=== PATIENT | male | born 1975 | race African-American/Black ===

== ENCOUNTER 2016-12-04 00:11 | Emergency (ER) | payer OTHER ==
[~2016-12-04] VITALS: Ht 167.6 cm; Wt 68.0 kg
[2016-12-04 00:19] VITALS: BP 131/104; PULSE 78; RESP 20; TEMP 98.5; O2SAT 95
[2016-12-04] MEDS ORDERED: ACETAMINOPHEN/HYDROcodone 325 MG/5 MG TAB PO ONE (00:30)
[2016-12-04] MEDS ORDERED: LIDOCAINE HCL 1% 50 ML VIAL INFIL ONE (00:30)
[2016-12-04] MEDS ORDERED: AMOXICILLIN/CLAVULANATE K 875 MG TAB PO ONE (00:30)
[2016-12-04] MEDS ORDERED: TETANUS/DIPHTHERIA TOXOID ADULT 0.5 ML VIAL IM ONE (00:45)
--- NOTE | 2016-12-04 01:16 | RADRPT ---
EXAM DATE/TIME: 12/04/2016 00:46 [place] COMPARISON: No previous studies available for comparison. INDICATIONS : Dog bite, right knee. MEDICAL HISTORY : None. SURGICAL HISTORY : None. ENCOUNTER: Initial ACUITY: 1 day PAIN SCORE: 8/10 LOCATION: Right knee. FINDINGS: Four view examination of the right knee demonstrates no evidence of fracture or dislocation. Bony mi neralization is normal. There is air in the subcutaneous tissues with overlying skin lacerations medi al knee. No radiopaque foreign body. CONCLUSION: 1. Air in soft tissues from skin lacerations. No radiopaque foreign body. No acute bony abnormality. Vishal Hendrix MD on December 04, 2016 at 1:10 Board Certified Radiologist. This report was verified electronically.
[2016-12-04] MEDS ORDERED: IBUP800T23 PO (01:18)
[2016-12-04] MEDS ORDERED: AUGM875T3 PO (01:18)
--- NOTE | 2016-12-04 01:27 | PD ---
HPI Chief Complaint: Bite or Sting Time Seen by Provider: 01:18 Travel History International Travel<30 days: No Contact w/Intl Traveler<30days: No Traveled to known affect area: No History of Present Illness HPI 41-year-old black male presents to emergency Department in police custody for evaluation of a dog bite. Patient was bitten by a police canine in the right leg. Patient states that he has not had a tetanus shot over 5 years. Pain is moderate. Worse with movement. No numbness, tingling or weakness. No other injuries. PFSH Past Medical History Medical History: Denies Significant Hx Immunizations Current: Yes Tetanus Vaccination: > 5 Years Influenza Vaccination: No Past Surgical History Surgical History: No Previous Surgery Social History Alcohol Use: Yes (socially) Tobacco Use: No Substance Use: No Allergies-Medications (Allergen,Severity, Reaction): Coded Allergies: No Known Allergies (Unverified , 12/04/16) Reported Meds & Prescriptions Reported Meds & Active Scripts Active Augmentin (Amoxicillin-Clavulanate) 875-125 Mg Tab 1 Tab PO BID Ibuprofen 800 Mg Tab 800 Mg PO Q8H PRN Review of Systems Except as stated in HPI: all other systems reviewed are Neg Physical Exam Narrative GENERAL: Well-developed, well-nourished in no apparent distress. Nontoxic appearing. HEAD: Normocephalic, atraumatic. EYES: Pupils equal round and reactive. Extraocular motions intact. No scleral icterus. No injection or drainage. ENT: Nose clear. Throat without erythema, tonsillar hypertrophy or exudate. Uvula midline. Airway patent. NECK: Trachea midline. Supple, nontender, moves head freely. No central bony tenderness or spasm. CARDIOVASCULAR: Regular rate and rhythm without murmurs, gallops, or rubs. RESPIRATORY: Clear to auscultation. Breath sounds equal bilaterally. No wheezes , rales, or rhonchi. GASTROINTESTINAL: Abdomen soft, non-tender, nondistended. No hepato-splenomegaly , or palpable masses. No guarding. EXTREMITIES: No clubbing, cyanosis, or edema. No joint tenderness. Patient has a dog bite pattern to the medial aspect of the right lower thigh just above the knee. Patient has multiple tooth punctures along with a few gaping lacerations. There is no deep injury. No tendon, nerve or vascular injury. There is no injury to the upper thigh, knee, lower leg or foot. The left lower extremity as well as upper extremities are unremarkable for acute bony injury or deformity. BACK: Nontender without deformity. No flank tenderness. NEUROLOGICAL: Awake, alert and oriented x 3 .Cranial nerves grossly intact. Motor and sensory grossly within normal limits. Normal speech. Data Data Last Documented VS Vital Signs Date Time Temp Pulse Resp B/P (MAP) Pulse Ox O2 Delivery O2 Flow Rate FiO2 12/04/16 00:19 98.5 78 20 131/104 (113) 95 Orders Orders Lidocaine 1% Inj (50 Ml) (Xylocaine 1% I (12/04/16 00:30) Amoxicil-Clavulanate (Augmentin) (12/04/16 00:30) Acetamin-Hydrocod 325-5 Mg ([place] 5-325 (12/04/16 00:30) Knee, Complete (4vws) (12/04/16 00:29) Tetanus/Diphtheria Tox Adult (Tetanus/Di (12/04/16 00:45) MDM Medical Decision Making Medical Screen Exam Complete: Yes Emergency Medical Condition: Yes Medical Record Reviewed: Yes Interpretation(s) Right knee: Positive soft tissue swelling with air in the soft tissue but no bony injury. Differential Diagnosis MDM: High Differential diagnoses: Fracture, sprain, strain, dislocation, contusion, neurovascular injury Narrative Course Patient is given Augmentin 875 by mouth, tetanus immunization, Lortab 5 mg by mouth for pain. X-ray of the right knee is negative for bony injury. Positive soft tissue swelling with air but no neurovascular injury. Patient's wounds are loosely approximated with sutures. Patient's medically cleared to go to penitentiary. This is a dog bite right lower extremity, medical clearance to go to penitentiary Procedures Procedure Narrative LACERATION LOCATION: Lower aspect of right upper leg LENGTH: 4 cm NUMBER OF STITCHES/ZONIA: 3 REPAIR: The area of the laceration was prepped with Betadine and sterilely draped. The laceration was infiltrated with 1% lidocaine. The wound was copiously irrigated and explored without evidence of foreign body, tendon injury or neurovascular injury. The wound was closed using 4-0 proline. This was a simple single layer repair. A sterile dressing was applied. The patient was advised to keep the dressing clean and dry. Patient tolerated the procedure well. LACERATION LOCATION: Lower aspect of right upper leg LENGTH: 4 cm NUMBER OF STITCHES/ZONIA: 4 REPAIR: The area of the laceration was prepped with Betadine and sterilely draped. The laceration was infiltrated with 1% lidocaine. The wound was copiously irrigated and explored without evidence of foreign body, tendon injury or neurovascular injury. The wound was closed using 4-0 proline. This was a simple single layer repair. A sterile dressing was applied. The patient was advised to keep the dressing clean and dry. Patient tolerated the procedure well. LACERATION LOCATION: Lower aspect of right upper leg LENGTH: 1.5 cm NUMBER OF STITCHES/ZONIA: 1 REPAIR: The area of the laceration was prepped with Betadine and sterilely draped. The laceration was infiltrated with 1% lidocaine. The wound was copiously irrigated and explored without evidence of foreign body, tendon injury or neurovascular injury. The wound was closed using 4-0 proline. This was a simple single layer repair. A sterile dressing was applied. The patient was advised to keep the dressing clean and dry. Patient tolerated the procedure well. LACERATION LOCATION: Lower aspect of right upper leg LENGTH: 1.5 cm NUMBER OF STITCHES/ZONIA: 1 REPAIR: The area of the laceration was prepped with Betadine and sterilely draped. The laceration was infiltrated with 1% lidocaine. The wound was copiously irrigated and explored without evidence of foreign body, tendon injury or neurovascular injury. The wound was closed using 4-0 proline. This was a simple single layer repair. A sterile dressing was applied. The patient was advised to keep the dressing clean and dry. Patient tolerated the procedure well. Diagnosis Primary Impression: Dog bite of right lower leg Qualified Codes: S81.851A - Open bite, right lower leg, initial encounter; W54.0XXA - Bitten by dog, initial encounter Additional Impression: Medical clearance for incarceration Patient Instructions: Narcotic given in the ED, General Instructions Additional Instructions: Rest. Elevation. Ibuprofen for pain. Augmentin. Daily wound care with soap, water, Neosporin. Sutures out in 12-14 days. Return to the ER if any problems. Med/Other Pt SpecificInfo: Prescription(s) given, Wound Care Scripts Amoxicillin-Clavulanate (Augmentin) 875-125 Mg Tab 1 TAB PO BID for Infection, #20 TAB 0 Refills Prov: Mariana Castillo MD 12/04/16 Ibuprofen (Ibuprofen) 800 Mg Tab 800 MG PO Q8H Y for PAIN SCALE 1 TO 10, #30 TAB 0 Refills Prov: Mariana Castillo MD 12/04/16 Disposition: [address] LAW ENFORCEMNT Condition: Stable Vishal Ingram Dec 04, 2016 01:27
== END 2016-12-04 01:55 ==
LOC: NETRI 00:11
DX: S81.851A Open bite, right lower leg, initial encounter (principal); W54.0XXA Bitten by dog, initial encounter; Y35.893A Legal intervention involving other specified means, suspect injured, initial encounter; Z23 Encounter for immunization
CPT/HCPCS: 12004; 73564; 90471; 90714